=== PATIENT | male | born 1950 | race Caucasian/White ===

== ENCOUNTER → 2019-01-25 | Outpatient (CLI) | payer MEDICARE, OTHER ==
[~2019-01-25] MED LIST: AMOCLA875 PO; ASPI325 PO; ETODOLAC PO; FENT25TP TOP; HYDCHLSU PO; HYDROCODONE-CHLO5 ML PO; IRBHYD300 PO; METO100ER PO; POTA10T PO; ROXICODONE5 MG PO; XARELTO1 EACH PO
== END | disposition home or self-care (01) ==
LOC: PLD 14:13 → LAB SHORT 14:13
DX: L57.0 Actinic keratosis (principal)
CPT/HCPCS: 88305

== ENCOUNTER → 2020-02-12 | Outpatient (CLI) | payer MEDICARE, OTHER | END | disposition home or self-care (01) | LOC: LAB 12:20 → LAB SHORT 12:20 | DX: B35.3 Tinea pedis (principal) | CPT/HCPCS: 87070; 87077; 87147; 87186; 87205 ==

== ENCOUNTER → 2020-09-01 | Outpatient (CLI) | payer MEDICARE, OTHER | LOC: LAB SHORT 14:40 → LAB 14:40 | DX: C44.229 Squamous cell carcinoma of skin of left ear and external auricular canal (principal) | CPT/HCPCS: 88305 ==

== ENCOUNTER → 2020-09-29 | Outpatient (CLI) | payer MEDICARE, OTHER | END | disposition home or self-care (01) | LOC: PLD 08:09 → LAB SHORT 08:09 | DX: C44.229 Squamous cell carcinoma of skin of left ear and external auricular canal (principal) | CPT/HCPCS: 88305 ==

== ENCOUNTER → 2020-10-01 | Outpatient (CLI) | payer MEDICARE, OTHER | END | disposition home or self-care (01) | LOC: LAB SHORT 07:33 → PLD 07:33 | DX: C44.229 Squamous cell carcinoma of skin of left ear and external auricular canal (principal) | CPT/HCPCS: 88305 ==

== ENCOUNTER → 2021-06-23 | Outpatient (CLI) | payer MEDICARE, OTHER | LOC: LAB SHORT 11:44 → LAB 11:44 | DX: L08.0 Pyoderma (principal) | CPT/HCPCS: 87070; 87077; 87147; 87186; 87205 ==

== ENCOUNTER → 2021-07-06 | Outpatient (CLI) | payer MEDICARE, OTHER | END | disposition home or self-care (01) | LOC: LAB SHORT 11:13 | DX: L97.519 Non-pressure chronic ulcer of other part of right foot with unspecified severity (principal) | CPT/HCPCS: 88305; 88312 ==

== ENCOUNTER → 2021-09-07 | Outpatient (CLI) | payer MEDICARE, OTHER | LOC: LAB SHORT 15:03 | DX: D48.5 Neoplasm of uncertain behavior of skin (principal); L98.0 Pyogenic granuloma | CPT/HCPCS: 88305 ==

== ENCOUNTER 2022-09-03 10:13 | Day surgery (SDC) | payer MEDICARE, OTHER ==
[~2022-09-03] VITALS: Ht 180.3 cm; Wt 116.6 kg
[2022-09-03] MEDS ORDERED: SPIR25 PO (11:10)
--- NOTE | 2022-09-03 11:12 | NUR ---
Ambulatory in Day Surgery. History, Chart, Medications and Allergies reviewed before start of procedure.Lungs clear T/O to Auscultation. Patient confirms NPO status and agrees with scheduled surgery. Pre-Op teaching done. Pt verbalizes understanding. Patient States Post-Procedure ride home has been arranged.
--- NOTE | 2022-09-03 13:10 | NUR ---
pt denies pain, declines anything to drink or eat at this time. to bedside. dressing to r foot clean dry and intact.
--- NOTE | 2022-09-03 13:30 | NUR ---
Discharge instructions reviewed with patient. Patient verbalizes understanding. Copy given to patient to take home. Dressing to procedure site clean, dry, intact with no visible drainage, swelling, erythema or bruising noted. Discharged via wheelchair to private car for ride home.
== END 2022-09-03 22:53 | disposition home or self-care (01) ==
LOC: ORSCMMR 10:13 → ORSCSDS 12:00 → ORSCMMR 12:00 → ORD 12:00 → ORSCSDS 14:30 → ORSCMMR 22:53
PROVIDERS: Podiatrist
PROC: 0Y6X0Z1 Detachment at Right 5th Toe, High, Open Approach (ICD-10-PCS; principal; 2022-09-03 12:00)
DX: L97.512 Non-pressure chronic ulcer of other part of right foot with fat layer exposed (principal); I10 Essential (primary) hypertension; I48.91 Unspecified atrial fibrillation; Z79.01 Long term (current) use of anticoagulants; G62.9 Polyneuropathy, unspecified; Z79.899 Other long term (current) drug therapy
CPT/HCPCS: 88305; 88311; 93005; 93010; J0690; J2250; J2370; J2704; J2795; J3010; J7120

== ENCOUNTER → 2022-10-07 | Outpatient (CLI) | payer MEDICARE, OTHER ==
[~2022-10-07] MED LIST changes: +SPIR25 PO
== END | disposition home or self-care (01) ==
LOC: LAB 12:00 → LAB SHORT 12:00
DX: L97.512 Non-pressure chronic ulcer of other part of right foot with fat layer exposed (principal); L03.115 Cellulitis of right lower limb; M86.271 Subacute osteomyelitis, right ankle and foot; G60.3 Idiopathic progressive neuropathy
CPT/HCPCS: 87070; 87071; 87075; 87076; 87185; 87205

== ENCOUNTER 2023-09-22 09:32 | Day surgery (SDC) | payer MEDICARE, OTHER ==
[2023-09-22] VITALS (14 sets, daily range): BP systolic 85–137; BP diastolic 55–93
[~2023-09-22] VITALS: Ht 177.8 cm; Wt 117.1 kg
[~2023-09-22 09:32] MED LIST changes: +GABA300 PO; +IRBESARTAN75 M3 PO; +XARELTO20 M1 PO
--- NOTE | 2023-09-22 10:32 | NUR ---
Ambulatory in Day Surgery History, Chart, Medications and Allergies reviewed before start of procedure.Patient confirms NPO status and agrees with scheduled surgery. Pre-Op teaching done. Pt verbalizes understanding.
--- NOTE | 2023-09-22 10:41 | NUR ---
09/22/23 1041 [address] Pires HISTORY, CHART, MEDICATIONS AND ALLERGIES REVIEWED BEFORE START OF PROCEDURE. PATIENT CONFIRMS NPO STATUS AND AGREES WITH SCHEDULED PROCEDURE. 3-LEAD EKG REVIEWED WITH PHYSICIAN PRIOR TO START OF PROCEDURE. MONITOR INTACT WITH CONTINUOUS PULSE OXIMETRY,CAPNOGRAPHY, 3-LEAD EKG, INTERMITTENT BP. SUPPLEMENTAL O2 TO BE TITRATED THROUGHOUT PROCEDURE TO MAINTAIN O2 SATURATION ABOVE 90%. PATIENT DETERMINED TO BE ASA APPROPRIATE FOR PROPOFOL SEDATION PRIOR TO START OF PROCEDURE BY DR. CASAREZ.
--- NOTE | 2023-09-22 11:24 | NUR ---
DISCHARGE NOTE Patient up to Ambulate independently. Gait steady. Discharge instructions reviewed with patient. Patient verbalizes understanding. Copy given to patient to take home. Discharged via wheelchair to private car for ride home.
== END 2023-09-22 23:04 | disposition home or self-care (01) ==
LOC: ORSCMMR 09:32 → ORD 10:30 → ORSCMMR 10:30
PROVIDERS: Internal Medicine Gastroenterology
PROC: 0DBN8ZX Excision of Sigmoid Colon, Via Natural or Artificial Opening Endoscopic, Diagnostic (ICD-10-PCS; principal; 2023-09-22 10:30)
DX: Z12.11 Encounter for screening for malignant neoplasm of colon (principal); D12.5 Benign neoplasm of sigmoid colon; I48.91 Unspecified atrial fibrillation; G62.9 Polyneuropathy, unspecified; K64.8 Other hemorrhoids; Z95.0 Presence of cardiac pacemaker; Z68.38 Body mass index [BMI] 38.0-38.9, adult; Z79.01 Long term (current) use of anticoagulants; Z79.899 Other long term (current) drug therapy
CPT/HCPCS: 88305; J2704; J7120